=== PATIENT | male | born 1990 | race Caucasian/White ===

== ENCOUNTER 2024-08-26 07:45 | Emergency (ER) | payer SELFPAY ==
[2024-08-26] MEDS ORDERED: Fluorescein Opthalmic Strip ONE (08:04)
[2024-08-26] MEDS ORDERED: Tetracaine 0.5% PF 4 ML BOT ONE (08:04)
== END 2024-08-26 08:55 | disposition home or self-care (01) ==
LOC: MADERS 07:45
DX: T15.01XA Foreign body in cornea, right eye, initial encounter (principal); W44.8XXA Other foreign body entering into or through a natural orifice, initial encounter
CPT/HCPCS: 99283